=== PATIENT | male | born 1965 | race African-American/Black ===

== ENCOUNTER 2017-09-20 08:27 | Emergency (ER) | END 2017-09-20 14:56 | disposition home or self-care (01) ==

== ENCOUNTER 2019-03-29 08:51 | Inpatient (IN) | payer MEDICARE, OTHER ==
[~2019-03-29] VITALS: Ht 175.3 cm; Wt 82.8 kg
[~2019-03-29 08:51] MED LIST: BEN50 PO; BENZ1TAB7 PO; DIPH50CA30 PO; ESOM40CA PO; FAMO-96 PO; HYDR12.58 PO; METO-335 PO; ONDA4TAB8 PO
[2019-03-29] MEDS ORDERED: ONDANSETRON 4 MG INJ IV STA (09:17)
[2019-03-29] MEDS ORDERED: morphine 4 MG/ML VIAL IV STA (09:17)
--- NOTE | 2019-03-29 09:22 | ERD ---
ER Documentation Chief Complaint Chief Complaint BIB RA WITH [employer]. PT AT [facility] THREAT[facility] TO HIT STAFF. C/O AP HPI 54-year-old male no known past medical history presenting today on a 5150 by police and EMS for danger to others. Patient became agitated while he was living in his assisted facility. Patient had multiple episodes of nausea and vomiting with EMS and endorsing right flank and abdominal pain.. Denies any history of similar symptoms. Denies any abdominal surgeries. Denies any drugs or alcohol. Patient is refusing to answer any other questions at this time. ROS All systems reviewed and are negative except as per history of present illness. Medications Home Meds Reported Medications Metoprolol Succinate* (Toprol XL*) 25 Mg Tab.sr.24h, 25 MG PO DAILY, #30 TAB 03/29/19 Esomeprazole Mag Trihydrate (Nexium) 40 Mg Capsule.dr, 40 MG PO DAILY, #30 CAP 03/29/19 Hydrochlorothiazide* (Hydrochlorothiazide*) 12.5 Mg Tablet, 12.5 MG PO DAILY, #30 TAB 03/29/19 Diphenhydramine Hcl (BANOPHEN) 50 Mg Capsule, 50 MG PO BID, CAP 03/29/19 Benztropine Mesylate* (Benztropine Mesylate*) 1 Mg Tablet, 1 MG PO BID, TAB 03/29/19 Discontinued Reported Medications Diphenhydramine Hcl* (Benadryl*) 50 Mg Cap, 50 MG PO BID PRN for ITCHING, CAP 09/20/17 Metoprolol Succinate* (Toprol XL*) 25 Mg Tab.sr.24h, 25 MG PO DAILY, #30 TAB 09/20/17 Esomeprazole Mag Trihydrate (Nexium) 40 Mg Capsule.dr, 40 MG PO DAILY, #30 CAP 09/20/17 Hydrochlorothiazide* (Hydrochlorothiazide*) 12.5 Mg Tablet, 12.5 MG PO DAILY, #30 TAB 09/20/17 Benztropine Mesylate* (Benztropine Mesylate*) 1 Mg Tablet, 1 MG PO BID, TAB 09/20/17 Discontinued Scripts Famotidine* (Pepcid*) 20 Mg Tablet, 20 MG PO BID for 4 Days, TAB Prov:LEVY WALDEN MD 09/20/17 Ondansetron Hcl* (Zofran*) 4 Mg Tablet, 4 MG PO Q6H for NAUSEA AND/OR VOMITING, #12 TAB Prov:LEVY WALDEN MD 09/20/17 Allergies Allergies: Coded Allergies: No Known Allergy (Unverified , 03/29/19) PMhx/Soc History of Surgery: No Anesthesia Reaction: No Hx Neurological Disorder: No Hx Respiratory Disorders: No Hx Cardiac Disorders: No Hx Psychiatric Problems: Yes (Schizophrenia and depression) Hx Miscellaneous Medical Probl: No Hx Alcohol Use: No Hx Substance Use: No Hx Tobacco Use: No Smoking Status: Never smoker Physical Exam Vitals Vital Signs Date Temp Pulse Resp B/P (MAP) Pulse Ox O2 O2 Flow FiO2 Time Delivery Rate 03/29/19 97.9 89 17 138/64 99 09:07 (88) Physical Exam Const: Agitated Head: Atraumatic Eyes: Normal Conjunctiva ENT: Normal External Ears, Nose and Mouth. Neck: Full range of motion. No meningismus. Resp: Clear to auscultation bilaterally Cardio: Regular rate and rhythm, no murmurs Abd: Soft, diffuse abdominal tenderness no guarding non distended. Normal bowel sounds Skin: No petechiae or rashes Back: No midline or flank tenderness Ext: No cyanosis, or edema Neur: Awake and alert Psych: Normal Mood and Affect Result Diagram: 03/29/1992703/29/19927 Results 24 hrs Laboratory Tests Test 03/29/19 09:28 White Blood Count 9.4 10^3/ul Red Blood Count 4.63 10^6/ul Hemoglobin 15.0 g/dl Hematocrit 42.8 % Mean Corpuscular Volume 92.4 fl Mean Corpuscular Hemoglobin 32.4 pg Mean Corpuscular Hemoglobin Concent 35.0 g/dl Red Cell Distribution Width 12.2 % Platelet Count 200 10^3/UL Mean Platelet Volume 9.4 fl Immature Granulocytes % 0.200 % Neutrophils % 85.3 % Lymphocytes % 9.0 % Monocytes % 5.4 % Eosinophils % 0.0 % Basophils % 0.1 % Nucleated Red Blood Cells % 0.0 /100WBC Immature Granulocytes # 0.020 10^3/ul Neutrophils # 8.0 10^3/ul Lymphocytes # 0.9 10^3/ul Monocytes # 0.5 10^3/ul Eosinophils # 0.0 10^3/ul Basophils # 0.0 10^3/ul Nucleated Red Blood Cells # 0.0 10^3/ul Sodium Level 141 mmol/L Potassium Level 3.3 mmol/L Chloride Level 108 mmol/L Carbon Dioxide Level 29 mmol/L Anion Gap 4 Blood Urea Nitrogen 11 mg/dl Creatinine 1.00 mg/dl Est Glomerular Filtrat Rate mL/min > 60 mL/min Glucose Level 131 mg/dl Calcium Level 9.9 mg/dl Total Bilirubin 1.1 mg/dl Direct Bilirubin 0.00 mg/dl Indirect Bilirubin 1.1 mg/dl Aspartate Amino Transf (AST/SGOT) 451 IU/L Alanine Aminotransferase (ALT/SGPT) 375 IU/L Alkaline Phosphatase 177 IU/L Total Protein 7.3 g/dl Albumin 4.3 g/dl Globulin 3.00 g/dl Albumin/Globulin Ratio 1.43 Lipase 92717 U/L Current Medications Medications Dose Sig/Narciso Start Time Status Last (Trade) Ordered Route PRN Stop Time Admin Dose Reason Admin Morphine 4 mg ONCE STAT 03/29/19 DC Sulfate IV 09:17 (morphine) 03/29/19 09:39 Ondansetron 4 mg ONCE STAT 03/29/19 DC HCl (Zofran IV 09:17 Inj) 03/29/19 09:39 Morphine 4 mg ONCE STAT 03/29/19 DC Sulfate IM 09:38 (morphine) 03/29/19 09:39 Ondansetron 4 mg ONCE STAT 03/29/19 DC HCl (Zofran ODT 09:38 Odt) 03/29/19 09:39 Procedures/MDM Patient presents with abdominal pain, nausea and vomiting, has flatus , BM afebrile Patient is well appearing. Non acute abdominal exam. Low suspicion for AAA given no palpable mass . Low suspicion for mesenteric ischemia given pain not out of proportion to exam, and no major risk factors. Patient CT and laboratory analysis revealed patient has pancreatitis. We will give IV fluids pain control nausea vomiting control and admit for further work-up. Patient is also on a 5150 for danger to others currently he is cooperating and calm.. low suspicion for acute abdominal process, such as acute cholecystitis, perforated viscus, atypical appendicitis or torsion. MARGO TIMMONS MD Mar 29, 2019 09:22
[2019-03-29] MEDS ORDERED: morphine 4 MG/ML VIAL IM STA (09:38)
[2019-03-29] MEDS ORDERED: ONDANSETRON (ODT) 4 MG TAB ODT STA (09:38)
[2019-03-29] MEDS ORDERED: ACETAMINOPHEN 325 MG TAB PO PRN (13:30)
[2019-03-29] MEDS ORDERED: SOD CHLORIDE 0.9% 500 ML IV ONE (13:30)
[2019-03-29] MEDS ORDERED: ONDANSETRON 4 MG INJ IV PRN ×2 (13:30→17:00)
[2019-03-29] MEDS ORDERED: NACL 0.9% 3 ML SYG IV SCH (17:00)
[2019-03-29] MEDS ORDERED: morphine 2 MG INJ IV PRN ×2 (17:00→17:30)
[2019-03-29] MEDS ORDERED: LORAZEPAM 2 MG INJ IV PRN (17:00)
--- NOTE | 2019-03-29 17:18 | HP ---
Date/Time of Note Date/Time of Note DATE: 03/29/19 TIME: 17:18 Assessment/Plan VTE Prophylaxis Pharmacological prophylaxis: other Assessment/Plan Hospital Course Patient is a -[place] male with a past medical history significant for schizophrenia who presents to [facility] after police were called to his assisted living facility for him being agitated. Per police patient was exhibiting multiple bouts of nausea and vomiting and abdominal pain. Patient was diagnosed with pancreatitis by ED physician. At current time, patient has not received any pain medications and abdominal pain appears to have nearly resolved. Patient stating he has minimal to no abdominal pain and has no nausea or vomiting. Patient doing well and did not even get pain medication in the ED. Patient states he has schizophrenia but no other medical conditions. Patient was placed on 5150 hold by police. Patient denies chest pain, short of breath, nausea, vomiting, headache, leg pain, bowel or bladder dysfunction Objective Physical exam General: Patient is laying in bed and answers questions appropriately Mentation: Patient is alert and oriented Head: Normocephalic atraumatic Eyes: EOMI, pupils reactive to light Neck: Supple, nontender, midline Respiratory: Clear to auscultation bilaterally Cardiovascular: regular rate, no obvious murmurs Gastrointestinal: Minimally tender only to deep palpation, bowel sounds heard. Neurological: Moves all extremities spontaneously Skin: No new skin lesions Assessment and plan Acute pancreatitis -Patient's acute abdominal pain appears to be significantly resolved, patient has no more nausea or vomiting or significant abdominal pain even without any pain medications, per patient's request will attempt a trial of clear liquid -Continue IV fluid for now -IV pain medication as needed -If patient exhibits any change in pain, will need to be placed back on n.p.o. Schizophrenia -Patient was placed on 5150 by police, will need formal evaluation, psych consulted, however patient very calm and does not appear to be too different from baseline at this time, very cooperative -We will need to get a list of his proper psych meds as medications on the computer do not seem to match up with what patient is stating will need to confirm Elevated AST and ALT -No evidence of liver deformity on CT scan -May be secondary to above pancreatitis, will repeat labs tomorrow and if continues to be elevated will continue work-up including GI consultation Questionable hypertension -Patient not having any issues with hypertension while here in the ED, will need to verify with patient if he truly does take blood pressure medications, denies blood pressure issues at this time Disposition -Patient appears to be back to baseline, pancreatitis has appeared to be nearly resolved, will attempt clear liquid diet., Psych consultation pending Result Diagram: 03/29/1992703/29/19927 Results 24hrs Laboratory Tests Test 03/29/19 09:28 03/29/19 17:03 White Blood Count 9.4 # Red Blood Count 4.63 L Hemoglobin 15.0 Hematocrit 42.8 Mean Corpuscular Volume 92.4 Mean Corpuscular Hemoglobin 32.4 Mean Corpuscular Hemoglobin Concent 35.0 Red Cell Distribution Width 12.2 Platelet Count 200 Mean Platelet Volume 9.4 Immature Granulocytes % 0.200 Neutrophils % 85.3 H Lymphocytes % 9.0 L Monocytes % 5.4 Eosinophils % 0.0 Basophils % 0.1 Nucleated Red Blood Cells % 0.0 Immature Granulocytes # 0.020 Neutrophils # 8.0 H Lymphocytes # 0.9 Monocytes # 0.5 Eosinophils # 0.0 Basophils # 0.0 Nucleated Red Blood Cells # 0.0 Sodium Level 141 Potassium Level 3.3 L Chloride Level 108 Carbon Dioxide Level 29 Anion Gap 4 L Blood Urea Nitrogen 11 Creatinine 1.00 Est Glomerular Filtrat Rate mL/min > 60 Glucose Level 131 Calcium Level 9.9 Total Bilirubin 1.1 Direct Bilirubin 0.00 Indirect Bilirubin 1.1 Aspartate Amino Transf (AST/SGOT) 451 H Alanine Aminotransferase (ALT/SGPT) 375 H Alkaline Phosphatase 177 H Total Protein 7.3 Albumin 4.3 Globulin 3.00 Albumin/Globulin Ratio 1.43 Lipase 75225 H Urine Color KEVIN Urine Clarity CLEAR Urine pH 7.0 Urine Specific [place] 1.020 Urine Ketones NEGATIVE Urine Nitrite NEGATIVE Urine Bilirubin 1+ H Urine Urobilinogen 2+ H Urine Leukocyte Esterase NEGATIVE Urine Hemoglobin NEGATIVE Urine Glucose NEGATIVE Urine Total Protein NEGATIVE HPI/ROS Admit Date/Time Admit Date/Time PMH/Family/Social Past Medical History Medications Current Medications Ondansetron HCl (Zofran Inj) 4 mg ER BRIDGE PRN IV NAUSEA/VOMITING; Start 03/29/19 at 13:30; Stop 03/30/19 at 13:29 Acetaminophen (Tylenol Tab) 650 mg ER BRIDGE PRN PO .MILD PAIN 1-3 OR TEMP; Start 03/29/19 at 13:30; Stop 03/30/19 at 13:29 Sodium Chloride 1,000 ml @ 125 mls/hr Q8H IV ; Start 03/29/19 at 16:58; Status UNV IV Flush (NS 3 ml) 3 ml PER PROTOCOL IV ; Start 03/29/19 at 17:00; Status UNV Lorazepam (Ativan) 0.5 mg Q6H PRN IV .ANXIETY; Start 03/29/19 at 17:00; Status UNV Ondansetron HCl (Zofran Inj) 4 mg Q6H PRN IV NAUSEA/VOMITING; Start 03/29/19 at 17:00; Status UNV Potassium Chloride 100 ml @ 50 mls/hr Q2H IVPB ; Start 03/29/19 at 17:00; Stop 03/29/19 at 20:59; Status UNV Morphine Sulfate (morphine) 1 mg Q4H PRN IV SEVERE PAIN LEVEL 7-10; Start 03/29/19 at 17:30; Status UNV Coded Allergies: No Known Allergy (Unverified , 03/29/19) Social History Smoking Status: Never smoker Exam/Review of Systems Vital Signs Vitals Vital Signs Date Temp Pulse Resp B/P (MAP) Pulse Ox O2 O2 Flow FiO2 Time Delivery Rate 03/29/19 99.0 83 18 137/75 98 Room Air 16:58 (95) CAROL VEGA Mar 29, 2019 17:18
[2019-03-29] MEDS: POTASSIUM CHLORIDE 100 ML IVPB SCH ×2 (17:32→20:23)
[2019-03-29] MEDS: SOD CHLORIDE 0.9% 1,000 ML IV SCH (17:32)
[2019-03-29 20:56] VITALS: BP 148/81; PULSE 77; RESP 18
[2019-03-29 22:30] VITALS: Ht 175.3 cm; Wt 82.8 kg
[2019-03-30] VITALS (7 sets, daily range): BP systolic 91–132; BP diastolic 52–79; PULSE 55–88; RESP 18–19
[2019-03-30] MEDS ORDERED: POTASSIUM CHLORIDE (SR) 20 MEQ TAB PO ONE
[2019-03-30] MEDS: SOD CHLORIDE 0.9% 1,000 ML IV SCH ×3 (00:58→16:08)
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
[2019-03-30] MEDS: RISPERIDONE 2 MG TAB PO SCH (13:30)
[2019-03-30] MEDS: BENZTROPINE 1 MG TAB PO SCH (13:30)
--- NOTE | 2019-03-30 15:18 | PN ---
Date/Time of Note Date/Time of Note DATE: 03/30/19 TIME: 15:16 Objective Vitals Vital Signs Date Temp Pulse Resp B/P (MAP) Pulse Ox O2 O2 Flow FiO2 Time Delivery Rate 03/30/19 99.3 88 19 132/79 96 13:41 (96) 03/30/19 Room Air 04:30 Intake and Output 03/29/19 03/29/19 03/30/19 1515:00 23:00 07:00 IntakeIntake Total 480 ml OutputOutput Total 1 ml BalanceBalance 480 ml -1 ml Results Result Diagram: 03/29/1992703/29/19927 Medications Medications Current Medications Sodium Chloride 1,000 ml @ 125 mls/hr Q8H IV Last administered on 03/29/19at 17:32; Admin Dose 125 MLS/HR; Start 03/29/19 at 16:58 IV Flush (NS 3 ml) 3 ml PER PROTOCOL IV ; Start 03/29/19 at 17:00 Lorazepam (Ativan) 0.5 mg Q6H PRN IV .ANXIETY Last administered on 03/29/19at 22:50; Admin Dose 0.5 MG; Start 03/29/19 at 17:00 Ondansetron HCl (Zofran Inj) 4 mg Q6H PRN IV NAUSEA/VOMITING; Start 03/29/19 at 17:00 Risperidone (Risperdal) 2 mg DAILY PO ; Start 03/30/19 at 13:30 Benztropine Mesylate (Cogentin) 0.5 mg DAILY PO ; Start 03/30/19 at 13:30 Ibuprofen (Motrin) 400 mg Q6H PRN PO MILD PAIN(1-3) OR TEMP>38C; Start 03/30/19 at 13:00 VTE Prophylaxis Risk score (from Nsg)>0 risk: 1 SCD applied (from Nsg): No SCD contraindication: other Lines/Catheters IV Catheter Type: Lemus in Place: No Assessment/Plan Hospital Course Subjective Patient denies significant abdominal pain states is minimal to none, no nausea vomiting. Patient refusing labs drawn IV insertion Objective Physical exam General: Patient is laying in bed and answers questions appropriately Mentation: Patient is alert and oriented Head: Normocephalic atraumatic Eyes: EOMI, pupils reactive to light Neck: Supple, nontender, midline Respiratory: Clear to auscultation bilaterally Cardiovascular: regular rate, no obvious murmurs Gastrointestinal: Minimally tender only to deep palpation, bowel sounds heard. Neurological: Moves all extremities spontaneously Skin: No new skin lesions Assessment and plan Acute pancreatitis, resolving -Patient stating that he has minimal to no pain, tolerating diet well, no nausea vomiting -Patient refusing lab draw, no repeat lipase done -Monitor closely, Schizophrenia -Patient was placed on 5150 by police, will need formal evaluation, psych consulted, however patient very calm and does not appear to be too different from baseline at this time, very cooperative -We will need to get a list of his proper psych meds as medications on the computer do not seem to match up with what patient is stating will need to confirm Elevated AST and ALT -No evidence of liver deformity on CT scan -Wanted to repeat labs however patient refused lab draw, will need to follow-up outpatient Questionable hypertension -Patient not having any issues with hypertension while here in the ED, will need to verify with patient if he truly does take blood pressure medications, denies blood pressure issues at this time Disposition -Patient appears to be back to baseline, pancreatitis has appeared to be nearly resolved, continue increasing diet as tolerated -Psych will attempt to place patient. CAROL VEGA Mar 30, 2019 15:18
[2019-03-31] MEDS: SOD CHLORIDE 0.9% 1,000 ML IV SCH ×3 (00:58→16:58)
[2019-03-31 02:36] VITALS: BP 146/79; PULSE 73; RESP 18
[2019-03-31 07:55] VITALS: BP 110/57; PULSE 72; RESP 16
[2019-03-31] MEDS: RISPERIDONE 2 MG TAB PO SCH (08:45)
[2019-03-31] MEDS: IBUPROFEN 400 MG TAB PO PRN ×2 (08:45→20:56)
[2019-03-31] MEDS: BENZTROPINE 1 MG TAB PO SCH (08:45)
[2019-03-31 14:00] VITALS: BP 138/75; PULSE 70; RESP 18
--- NOTE | 2019-03-31 17:25 | PN ---
Date/Time of Note Date/Time of Note DATE: 03/31/19 TIME: 17:19 Objective Vitals Vital Signs Date Temp Pulse Resp B/P (MAP) Pulse Ox O2 O2 Flow FiO2 Time Delivery Rate 03/31/19 98.4 70 18 138/75 98 14:00 (96) 03/30/19 Room Air 19:15 Intake and Output 03/30/19 03/30/19 03/31/19 1515:00 23:00 07:00 IntakeIntake Total 360 ml 358 ml BalanceBalance 360 ml 358 ml Results Result Diagram: 03/31/19 1314 03/31/19 1314 Medications Medications Current Medications Sodium Chloride 1,000 ml @ 125 mls/hr Q8H IV Last administered on 03/29/19at 17:32; Admin Dose 125 MLS/HR; Start 03/29/19 at 16:58 IV Flush (NS 3 ml) 3 ml PER PROTOCOL IV ; Start 03/29/19 at 17:00 Lorazepam (Ativan) 0.5 mg Q6H PRN IV .ANXIETY Last administered on 03/29/19at 22:50; Admin Dose 0.5 MG; Start 03/29/19 at 17:00 Ondansetron HCl (Zofran Inj) 4 mg Q6H PRN IV NAUSEA/VOMITING; Start 03/29/19 at 17:00 Risperidone (Risperdal) 2 mg DAILY PO ; Start 03/30/19 at 13:30 Benztropine Mesylate (Cogentin) 0.5 mg DAILY PO ; Start 03/30/19 at 13:30 Ibuprofen (Motrin) 400 mg Q6H PRN PO MILD PAIN(1-3) OR TEMP>38C Last administered on 03/31/19at 08:45; Admin Dose 400 MG; Start 03/30/19 at 13:00 VTE Prophylaxis Risk score (from Nsg)>0 risk: 2 SCD applied (from Nsg): No SCD contraindication: other Lines/Catheters IV Catheter Type: Lemus in Place: No Assessment/Plan Hospital Course Subjective Patient denies significant abdominal pain states is minimal to none, no nausea vomiting. patient had fever this am Objective Physical exam General: Patient is laying in bed and answers questions appropriately Mentation: Patient is alert and oriented Head: Normocephalic atraumatic Eyes: EOMI, pupils reactive to light Neck: Supple, nontender, midline Respiratory: Clear to auscultation bilaterally Cardiovascular: regular rate, no obvious murmurs Gastrointestinal: Minimally tender only to deep palpation, bowel sounds heard. Neurological: Moves all extremities spontaneously Skin: No new skin lesions Assessment and plan Fever -May be incidental -No white count -Patient denies any symptoms -Monitor closely -Blood cultures taken Acute pancreatitis, resolving -Patient stating that he has minimal to no pain, tolerating diet well, no nausea vomiting -Patient refusing lab draw, but finally convince patient to get labs drawn, lipase is significantly decreased -Monitor closely, Schizophrenia -Patient was placed on 5150 by police, will need formal evaluation, psych consulted, however patient very calm and does not appear to be too different from baseline at this time, very cooperative -We will need to get a list of his proper psych meds as medications on the computer do not seem to match up with what patient is stating will need to confirm, patient does not remember the name of his medication Elevated AST and ALT -No evidence of liver deformity on CT scan -downtrending. Questionable hypertension -Patient not having any issues with hypertension while here in the ED, will need to verify with patient if he truly does take blood pressure medications, denies blood pressure issues at this time Disposition -Patient appears to be back to baseline, pancreatitis has appeared to be nearly resolved, continue increasing diet as tolerated -Psych will attempt to place patient. [facility] accepted patient. CAROL VEGA Mar 31, 2019 17:25
[2019-03-31 20:44] VITALS: BP 154/71; PULSE 78; RESP 20
[2019-04-01] MEDS: SOD CHLORIDE 0.9% 1,000 ML IV SCH ×2 (00:58→08:58)
[2019-04-01 02:05] VITALS: BP 129/75; PULSE 67; RESP 18
[2019-04-01 08:00] VITALS: BP 136/81; PULSE 64; RESP 15
[2019-04-01] MEDS: BENZTROPINE 1 MG TAB PO SCH (09:00)
[2019-04-01] MEDS: RISPERIDONE 2 MG TAB PO SCH (09:00)
--- NOTE | 2019-04-01 13:49 | PN ---
Date/Time of Note Date/Time of Note DATE: 04/01/19 TIME: 13:46 Objective Vitals Vital Signs Date Temp Pulse Resp B/P (MAP) Pulse Ox O2 O2 Flow FiO2 Time Delivery Rate 04/01/19 97.5 64 15 136/81 98 Room Air 08:00 (99) Intake and Output 03/31/19 03/31/19 04/01/19 1515:00 23:00 07:00 IntakeIntake Total 760 ml 330 ml 800 ml OutputOutput Total 600 ml BalanceBalance 160 ml 330 ml 800 ml Results Result Diagram: 03/31/19 1314 03/31/19 1314 Medications Medications Current Medications IV Flush (NS 3 ml) 3 ml PER PROTOCOL IV ; Start 03/29/19 at 17:00 Lorazepam (Ativan) 0.5 mg Q6H PRN IV .ANXIETY Last administered on 03/29/19at 22:50; Admin Dose 0.5 MG; Start 03/29/19 at 17:00 Ondansetron HCl (Zofran Inj) 4 mg Q6H PRN IV NAUSEA/VOMITING; Start 03/29/19 at 17:00 Risperidone (Risperdal) 2 mg DAILY PO ; Start 03/30/19 at 13:30 Benztropine Mesylate (Cogentin) 0.5 mg DAILY PO ; Start 03/30/19 at 13:30 Ibuprofen (Motrin) 400 mg Q6H PRN PO MILD PAIN(1-3) OR TEMP>38C Last administered on 03/31/19at 20:56; Admin Dose 400 MG; Start 03/30/19 at 13:00 Levofloxacin (Levaquin) 500 mg DAILY@06 PO ; Start 04/02/19 at 06:00 Metronidazole (Flagyl) 500 mg Q8 PO ; Start 04/01/19 at 14:00 VTE Prophylaxis Risk score (from Nsg)>0 risk: 1 SCD applied (from Nsg): No SCD contraindication: other Lines/Catheters IV Catheter Type: Lemus in Place: No Assessment/Plan Hospital Course Subjective Patient denies absolutely any abdominal pain, no nausea vomiting, still had fever overnight Objective Physical exam General: Patient is laying in bed and answers questions appropriately Mentation: Patient is alert and oriented Head: Normocephalic atraumatic Eyes: EOMI, pupils reactive to light Neck: Supple, nontender, midline Respiratory: Clear to auscultation bilaterally Cardiovascular: regular rate, no obvious murmurs Gastrointestinal: Nontender to palpation, bowel sounds heard. Neurological: Moves all extremities spontaneously Skin: No new skin lesions Assessment and plan Fever -May be incidental, but is now recurrent overnight however there are long periods of no medication and no fever so very interesting -No white count but difficult to monitor given patient's refusal of labs -Patient denies any symptoms -Monitor closely -Blood cultures taken -Given patient's lack of cooperation but difficulty sending him to a facility with an intermittent fever, will start patient on empiric antibiotics, given the only abnormality recently was intra-abdominal issues will start patient on Levaquin and Flagyl for any possible intra-abdominal abnormality which is very unlikely given no abdominal complaints and no tenderness to the abdominal area. Acute pancreatitis, resolved -Patient stating that he has absolutely no pain, tolerating diet well -Patient refusing lab draw, but finally convince patient to get labs drawn at least one time after admission on March 31, lipase is significantly decreased -Monitor closely, Schizophrenia -Patient was placed on 5150 by police, will need formal evaluation, psych consulted, however patient very calm and does not appear to be too different from baseline at this time, very cooperative -We will need to get a list of his proper psych meds as medications on the computer do not seem to match up with what patient is stating will need to con firm, patient does not remember the name of his medication Elevated AST and ALT -No evidence of liver deformity on CT scan -downtrending. Questionable hypertension -Patient not having any issues with hypertension while here in the ED, will need to verify with patient if he truly does take blood pressure medications, denies blood pressure issues at this time Disposition -Patient appears to be back to baseline, pancreatitis has resolved however there is an unknown recurrent fever -Send to psych facility when patient more stable. CAROL VEGA Apr 01, 2019 13:49
[2019-04-01 14:00] VITALS: BP 142/82; PULSE 57; RESP 18
[2019-04-01] MEDS: metroNIDAZOLE 500 MG TAB PO SCH ×2 (14:30→21:50)
[2019-04-01 19:41] VITALS: BP 130/84; PULSE 64; RESP 18
[2019-04-02] MEDS ORDERED: LORAZEPAM 2 MG INJ IV PRN (01:00)
[2019-04-02] MEDS ORDERED: LORAZEPAM 0.5 MG TAB PO PRN (02:00)
[2019-04-02] MEDS: LEVOFLOXACIN 500 MG TAB PO SCH (05:35)
[2019-04-02] MEDS: metroNIDAZOLE 500 MG TAB PO SCH ×3 (05:35→21:26)
[2019-04-02 05:37] VITALS: BP 120/63; PULSE 80; RESP 16
[2019-04-02 07:16] VITALS: BP 134/85; PULSE 71; RESP 18
[2019-04-02] MEDS: RISPERIDONE 2 MG TAB PO SCH (07:27)
[2019-04-02] MEDS: BENZTROPINE 1 MG TAB PO SCH (07:27)
--- NOTE | 2019-04-02 11:53 | PN ---
Date/Time of Note Date/Time of Note DATE: 04/02/19 TIME: 11:52 Objective Vitals Vital Signs Date Temp Pulse Resp B/P (MAP) Pulse Ox O2 O2 Flow FiO2 Time Delivery Rate 04/02/19 98.4 71 18 134/85 98 Room Air 07:16 (101) Intake and Output 04/01/19 04/01/19 04/02/19 1515:00 23:00 07:00 IntakeIntake Total 200 ml BalanceBalance 200 ml Results Result Diagram: 03/31/19 1314 03/31/19 1314 Medications Medications Current Medications IV Flush (NS 3 ml) 3 ml PER PROTOCOL IV ; Start 03/29/19 at 17:00 Ondansetron HCl (Zofran Inj) 4 mg Q6H PRN IV NAUSEA/VOMITING; Start 03/29/19 at 17:00 Risperidone (Risperdal) 2 mg DAILY PO ; Start 03/30/19 at 13:30 Benztropine Mesylate (Cogentin) 0.5 mg DAILY PO ; Start 03/30/19 at 13:30 Ibuprofen (Motrin) 400 mg Q6H PRN PO MILD PAIN(1-3) OR TEMP>38C Last administered on 03/31/19at 20:56; Admin Dose 400 MG; Start 03/30/19 at 13:00 Levofloxacin (Levaquin) 500 mg DAILY@06 PO Last administered on 04/02/19at 05:35; Admin Dose 500 MG; Start 04/02/19 at 06:00 Metronidazole (Flagyl) 500 mg Q8 PO Last administered on 04/02/19at 05:35; Admin Dose 500 MG; Start 04/01/19 at 14:00 Lorazepam (Ativan) 0.5 mg Q6H PRN PO ANXIETY; Start 04/02/19 at 02:00 VTE Prophylaxis Risk score (from Nsg)>0 risk: 1 SCD applied (from Nsg): No SCD contraindication: other Lines/Catheters IV Catheter Type: Lemus in Place: No Assessment/Plan Hospital Course Subjective Patient denies absolutely any abdominal pain, no nausea vomiting, no more fever Objective Physical exam General: Patient is laying in bed and answers questions appropriately Mentation: Patient is alert and oriented Head: Normocephalic atraumatic Eyes: EOMI, pupils reactive to light Neck: Supple, nontender, midline Respiratory: Clear to auscultation bilaterally Cardiovascular: regular rate, no obvious murmurs Gastrointestinal: Nontender to palpation, bowel sounds heard. Neurological: Moves all extremities spontaneously Skin: No new skin lesions Assessment and plan Fever, stable -May be incidental, -No white count but difficult to monitor given patient's refusal of labs -Patient denies any symptoms -Monitor closely -Blood cultures taken -Given patient's lack of cooperation but difficulty sending him to a facility with an intermittent fever, will start patient on empiric antibiotics, given the only abnormality recently was intra-abdominal issues will start patient on Levaquin and Flagyl for any possible intra-abdominal abnormality which is very unlikely given no abdominal complaints and no tenderness to the abdominal area. Acute pancreatitis, resolved -Patient stating that he has absolutely no pain, tolerating diet well -Patient refusing lab draw, but finally convince patient to get labs drawn at least one time after admission on March 31, lipase is significantly decreased -Monitor closely, Schizophrenia -Patient was placed on 5150 by police, will need formal evaluation, psych consulted, however patient very calm and does not appear to be too different from baseline at this time, very cooperative -We will need to get a list of his proper psych meds as medications on the computer do not seem to match up with what patient is stating will need to confirm, patient does not remember the name of his medication Elevated AST and ALT -No evidence of liver deformity on CT scan -downtrending. Questionable hypertension -Patient not having any issues with hypertension while here in the ED, will need to verify with patient if he truly does take blood pressure medications, denies blood pressure issues at this time Disposition -Patient appears to be back to baseline, pancreatitis has resolved however there is an unknown recurrent fever -Send to psych facility when patient more stable., Already accepted to [facility], will plan to send tomorrow if no more fever continues. CAROL VEGA Apr 02, 2019 11:53
[2019-04-02 13:30] VITALS: BP 127/77; PULSE 63; RESP 18
[2019-04-02 19:46] VITALS: BP 122/68; PULSE 75; RESP 16
[2019-04-03 02:33] VITALS: BP 113/63; PULSE 89
[2019-04-03] MEDS: LEVOFLOXACIN 500 MG TAB PO SCH (05:18)
[2019-04-03] MEDS: metroNIDAZOLE 500 MG TAB PO SCH ×2 (05:18→13:07)
[2019-04-03 07:20] VITALS: BP 109/72; PULSE 54; RESP 18
[2019-04-03] MEDS: BENZTROPINE 1 MG TAB PO SCH ×2 (09:00→11:29)
[2019-04-03] MEDS: RISPERIDONE 2 MG TAB PO SCH ×2 (09:00→11:29)
--- NOTE | 2019-04-03 12:14 | PN ---
Date/Time of Note Date/Time of Note DATE: 04/03/19 TIME: 12:06 Assessment/Plan VTE Prophylaxis Risk score (from Ns)>0 risk: 2 SCD applied (from Ns): No SCD contraindicated: low risk/ambulating Pharmacological prophylaxis: NA/contraindicated Pharm contraindication: low risk/ambulating Lines/Catheters IV Catheter Type (from [facility]): Urinary Cath still in place: No Assessment/Plan Assessment/Plan 1. Fevers, resolved - Patient remains afebrile and blood cultures negative. 2. Acute pancreatitis, resolved - lipase significantly decreased and no abdominal pain noted - refusing lab draws 3. Schizophrenia - Patient was placed on 5150 by police. Evaluated by psych and accepted to [facility]. Medically cleared for discharge 4. Elevated AST and ALT - improving - no acute issues seen on CT scan 5. Disposition - Patients vitals remain stable and tolerating PO intake. Medially stable for discharge to [place]. Plan of care discussed with patient. Result Diagram: 03/31/19 1314 03/31/19 1314 Subjective 24 Hr Interval Summary Free Text/Dictation Patient denies any acute issues and requesting to go home. Discussed due to 5150 hold will need to be transferred to [facility]. Patient aware Exam/Review of Systems Exam Vitals Vital Signs Date Temp Pulse Resp B/P (MAP) Pulse Ox O2 O2 Flow FiO2 Time Delivery Rate 04/03/19 97.7 54 18 109/72 94 Room Air 07:20 (84) Intake and Output 04/02/19 04/02/19 04/03/19 1515:00 23:00 07:00 IntakeIntake Total 1050 ml BalanceBalance 1050 ml Exam General: Patient is laying in bed and answers questions appropriately. Eyes: EOMI, pupils reactive to light Neck: Supple, nontender, midline Respiratory: Clear to auscultation bilaterally. no wheezing or rhonchi Cardiovascular: regular rate and rhythm, no obvious murmurs Gastrointestinal: soft, nontender to palpation, bowel sounds heard. Ext: no cyanosis, clubbing or edema Skin: No new skin lesions Medications Medication Current Medications IV Flush (NS 3 ml) 3 ml PER PROTOCOL IV ; Start 03/29/19 at 17:00 Ondansetron HCl (Zofran Inj) 4 mg Q6H PRN IV NAUSEA/VOMITING; Start 03/29/19 at 17:00 Risperidone (Risperdal) 2 mg DAILY PO Last administered on 04/03/19 11:29; Admin Dose 2 MG; Start 03/30/19 at 13:30 Benztropine Mesylate (Cogentin) 0.5 mg DAILY PO Last administered on 04/03/19 11:29; Admin Dose 0.5 MG; Start 03/30/19 at 13:30 Ibuprofen (Motrin) 400 mg Q6H PRN PO MILD PAIN(1-3) OR TEMP>38C Last admin istered on 03/31/19 20:56; Admin Dose 400 MG; Start 03/30/19 at 13:00 Levofloxacin (Levaquin) 500 mg DAILY@06 PO Last administered on 04/03/19 05:18; Admin Dose 500 MG; Start 04/02/19 at 06:00 Metronidazole (Flagyl) 500 mg Q8 PO Last administered on 04/03/19 05:18; Admin Dose 500 MG; Start 04/01/19 at 14:00 Lorazepam (Ativan) 0.5 mg Q6H PRN PO ANXIETY Last administered on 04/02/19 11:52; Admin Dose 0.5 MG; Start 04/02/19 at 02:00 JULEE SMITH MD Apr 03, 2019 12:14
--- NOTE | 2019-04-03 12:18 | PDOCDIS ---
Discharge Instructions DIAGNOSIS Discharge Diagnosis 1. Acute pancreatitis, resolved 2. Schizophrenia 3. Transaminitis- improving CONDITION [id number] Patient Condition: [id number] Stable HOME CARE INSTRUCTIONS: [id number] Diet Instructions: [id number] Low Fat /Cholesterol ACTIVITY: [id number] Activity Restrictions: [id number] No Restrictions FOLLOW UP/APPOINTMENTS Follow-up Plan 1. Follow up with your primary care physician in 1-2 weeks 2. Continue all care per psychiatry JULEE SMITH MD Apr 03, 2019 12:18
[2019-04-03] MEDS: IBUPROFEN 400 MG TAB PO PRN (13:08)
[2019-04-03 13:48] VITALS: BP 100/52; PULSE 56; RESP 16
[2019-04-03 19:29] VITALS: BP 118/69; PULSE 54; RESP 18
--- NOTE | 2019-04-03 19:32 | DS ---
Date/Time of Note Date/Time of Note DATE: 04/03/19 TIME: 19:31 Discharge Summary Admission/Discharge Info Admit Date/Time Mar 29, 2019 at 13:12 Discharge Date/Time 04/03/19 Discharge Diagnosis 1. Acute pancreatitis, resolved 2. Schizophrenia 3. Transaminitis- improving Patient Condition: Stable Consults Psychiatry Procedures PROCEDURE: CT Abdomen and Pelvis without contrast. CLINICAL INDICATION: Abdominal pain. TECHNIQUE: CT scan of the abdomen and pelvis without contrast was performed on a multidetector high-resolution CT scanner. The patient was scanned without intravenous contrast. Coronal and sagittal reformatted images were obtained from the axial source images. Images were reviewed on a high-resolution PACS workstation. One or more of the following dose reduction techniques were used: Automated exposure control, adjustment of the mA and/or kV according to patient size, use of iterative reconstruction technique. DICOM images are available. The total exam CTDI equals 7.85 mGy and the total exam DLP equals 494.32 mGy-cm. COMPARISON: CT from 09/20/2017 FINDINGS: CT ABDOMEN: Visualized lung bases: No significant infiltrate or pleural/pericardial effusion. The heart size is normal. Liver: The liver is normal in size and demonstrates normal attenuation. No evidence of solid hepatic mass or intrahepatic ductal dilatation. Gallbladder and bile ducts: Unremarkable. Spleen: Unremarkable. Pancreas: There is suggestion of mild peripancreatic fat stranding / fluid, especially in the pancreatic head/neck and proximal body.. No ductal dilatation or mass is seen. Adrenal glands: Unremarkable. Kidneys: No hydronephrosis, stones, or solid lesions seen. Vasculature: No abdominal aortic aneurysm. Negative IVC. Lymph nodes: No adenopathy. GI: There is no evidence of inflamed appendix. Negative terminal ileum and rectum. No evidence of obstruction. Negative sigmoid colon. Peritoneal cavity: No free fluid or free air. CT PELVIS: : Normal appearing bladder, distal ureters and ureterovesiculal junctions. The pelvic organs are unremarkable. Peritoneal cavity: No free fluid or free air. Lymph nodes: No adenopathy. Osseous structures: No acute osseous injury. No lytic or blastic lesions. Other: None. IMPRESSION: Limited exam without IV contrast. Suggestion of mild peripancreatic fat stranding / fluid concerning for acute pancreatitis. Correlation with pancreatic enzymes is recommended. Hx of Present Illness Patient is a -[place] male with a past medical history significant for schizophrenia who presents to [facility] after police were called to his assisted living facility for him being agitated. Per police patient was exhibiting multiple bouts of nausea and vomiting and abdominal pain. Patient was diagnosed with pancreatitis by ED physician. At current time, patient has not received any pain medications and abdominal pain appears to have nearly resolved. Patient stating he has minimal to no abdominal pain and has no nausea or vomiting. Patient doing well and did not even get pain medication in the ED. Patient states he has schizophrenia but no other medical conditions. Patient was placed on 5150 hold by police. Patient denies chest pain, short of breath, nausea, vomiting, headache, leg pain, bowel or bladder dysfunction Hospital Course Patient was admitted to the behavioral unit with a sitter given 5150 hold. Psych was consulted and recommended continue home and transfer to psych facility. Patient was found with acute pancreatitis that improved significantly and improvement in lipase and LFTs. Patient was noted with fever with no source of infection. His fever resolved and WBC remained normal. Patients was able to tolerate PO intake and denies any further GI issues. Patient was accepted to [facility] for further evaluation and to complete his 5150 hold. Patients presenting symptoms improved and he was discharged to psych facility in good condition. Vitals remained stable and afebrile for 24 hours. Home Meds Active Scripts Benztropine Mesylate* (Benztropine Mesylate*) 1 Mg Tablet, 0.5 MG PO BID for 30 Days, #60 TAB Prov:JULEE SMITH MD 04/03/19 Discontinued Reported Medications Metoprolol Succinate* (Toprol XL*) 25 Mg Tab.sr.24h, 25 MG PO DAILY, #30 TAB 03/29/19 Esomeprazole Mag Trihydrate (Nexium) 40 Mg Capsule.dr, 40 MG PO DAILY, #30 CAP 03/29/19 Hydrochlorothiazide* (Hydrochlorothiazide*) 12.5 Mg Tablet, 12.5 MG PO DAILY, #30 TAB 03/29/19 Diphenhydramine Hcl (BANOPHEN) 50 Mg Capsule, 50 MG PO BID, CAP 03/29/19 Diphenhydramine Hcl* (Benadryl*) 50 Mg Cap, 50 MG PO BID PRN for ITCHING, CAP 09/20/17 Metoprolol Succinate* (Toprol XL*) 25 Mg Tab.sr.24h, 25 MG PO DAILY, #30 TAB 09/20/17 Esomeprazole Mag Trihydrate (Nexium) 40 Mg Capsule.dr, 40 MG PO DAILY, #30 CAP 09/20/17 Hydrochlorothiazide* (Hydrochlorothiazide*) 12.5 Mg Tablet, 12.5 MG PO DAILY, #30 TAB 09/20/17 Benztropine Mesylate* (Benztropine Mesylate*) 1 Mg Tablet, 1 MG PO BID, TAB 09/20/17 Discontinued Scripts Famotidine* (Pepcid*) 20 Mg Tablet, 20 MG PO BID for 4 Days, TAB Prov:LEVY WALDEN MD 09/20/17 Ondansetron Hcl* (Zofran*) 4 Mg Tablet, 4 MG PO Q6H for NAUSEA AND/OR VOMITING, #12 TAB Prov:LEVY WALDEN MD 09/20/17 Follow-up Plan 1. Follow up with your primary care physician in 1-2 weeks 2. Continue all care per psychiatry Primary Care Provider Care Physician No Primary Time spent on discharge: > 30 minutes JULEE SMITH MD Apr 03, 2019 19:32
== END 2019-04-03 19:47 | DRG 440 ==
LOC: E/R 08:51 → TEL 13:12 → EDBEDREQ 13:37 → CANRESERV 15:56 → SUATTDRO 16:56 → MS3 03-30 13:22
PROVIDERS: ADMIT Internal Medicine; ATTEND Internal Medicine
DX: K85.90 Acute pancreatitis without necrosis or infection, unspecified (principal); F20.9 Schizophrenia, unspecified; R00.1 Bradycardia, unspecified; I10 Essential (primary) hypertension; R11.2 Nausea with vomiting, unspecified; R50.9 Fever, unspecified
CPT/HCPCS: 36415; 71045; 74176; 80048; 80053; 80076; 80307; 81001; 81003; 83690; 83735; 84100; 85025; J2060; J2270; J3480; J7030; J7040